=== PATIENT | male | born 1995 | race Asian ===

== ENCOUNTER 2017-03-20 02:42 | Emergency (ER) | payer OTHER ==
[2017-03-20 02:50] VITALS: TEMP 36.8; O2SAT 96
[2017-03-20 03:29] LABS: HEMATOCRIT 47.1 % (42-52); HEMOGLOBIN 16.4 g/dL (14.0-18.0); MEAN CELL VOLUME 90.4 fL (80-100); MEAN CORPUSCULAR HEMOGLOBIN 31.5 pg (25-34); MEAN CORPUSCULAR HGB CONC 34.8 g/dl (32-36); MEAN PLATELET VOLUME 9.3 fL (7.4-10.4); PLATELET COUNT 265 K/uL (130-400); RED CELL DISTRIBUTION WIDTH CV 12.5 % (11.5-14.5); RED CELL DISTRIBUTION WIDTH SD 40.9 fL (36.4-46.3); WHITE BLOOD COUNT 11.54 K/uL (4.8-10.8)
[2017-03-20] MEDS ORDERED: LORAZEPAM 2 MG/ML 1 ML VIAL ONE (03:40)
[2017-03-20 03:45] LABS: BLOOD UREA NITROGEN 15 mg/dl (7-18); CALCIUM 8.7 mg/dl (8.5-10.1); CARBON DIOXIDE 24 mmol/L (21-32); CREATININE 0.94 mg/dl (0.60-1.40); GLUCOSE 98 mg/dl (70-99); POTASSIUM 3.5 mmol/L (3.5-5.1); SODIUM 140 mmol/L (136-145)
[2017-03-20] MEDS ORDERED: XYLOCAINE 1%/SOD BICARB 20 ML VIAL INFIL ONE (07:15)
--- NOTE | 2017-03-20 08:58 | EMERGENCY ROOM VISIT NOTE ---
History Report prepared by Gildardo: Arlene Mendez Under the Supervision of: Dr. Nelli Bailon D.O. First contact with patient: 02:47 Chief Complaint: ALCOHOL OVERDOSE Stated Complaint: FALL W/ FOREHEAD LAC/ ETOH History of Present Illness The patient is a 21 year old male who presents to the Emergency Room with complaints of an episode of alcohol overdose occurring prior to arrival. Per nursing staff, the patient fell down steps outside of [facility] after drinking heavily tonight. His friend's report that he tripped and hit his forehead. He does not believe that there was a loss of consciousness. HPI and ROS limited secondary to intoxication. Source of History: patient, friend, nursing staff History Limited By: intoxication Onset: prior to arrival Position: other (global) Quality: other (overdose) Timing: other (episode) Review of Systems See HPI for pertinent positives & negatives. A total of 10 systems reviewed and were otherwise negative. Past Medical & Surgical Medical Problems: (1) No Known Active Medical Problems Family History No pertinent family history Social History Alcohol Use: occasionally Marital Status: single Housing Status: lives with roommate Occupation Status: [employer] student Current/Historical Medications Unable to Obtain Active Prescriptions or Reported Meds Physical Exam Vital Signs Date Time Temp Pulse Resp B/P (MAP) Pulse Ox O2 Delivery O2 Flow Rate FiO2 03/20/17 06:48 100 03/20/17 06:00 102 18 115/69 94 Room Air 03/20/17 05:00 100 18 118/60 94 Room Air 03/20/17 04:30 97 18 107/67 93 Room Air 03/20/17 04:04 115 18 132/73 96 Room Air 03/20/17 02:55 108 03/20/17 02:50 96 Room Air 03/20/17 02:50 36.8 110 18 124/75 96 Room Air Physical Exam General: lethargic HEENT: Head - normocephalic. Large laceration to the forehead measuring 3.2 cm. Pupils are equal, round, and reactive to light. Extraocular eye muscles are intact and sclera are anicteric. Ears - bilaterally patent canals with no evidence of hemotympanum. Nose - moist nasal mucosa without evidence of trauma or discharge. Mouth - moist buccal mucosa with no trauma to the teeth or signs of malocclusion. Neck: The cervical collar was temporarily removed while in-line stabilization was maintained. The neck is supple and there is no pain to palpation over the posterior cervical spine and no obvious step-offs or deformities. There is no JVD or tracheal deviation. Chest: There are no signs of deformities, contusions or abrasions to the chest wall. There is no obvious crepitus or paradoxical chest rise. Heart: Regular, rate, and rhythm. There is a normal S1 and S2 with no murmurs, clicks, or gallops appreciated. Lungs: Clear to auscultation bilaterally with no wheezes, rales, or rhonchi. Abdomen: Soft, completely nontender, nondistended, with good bowel sounds. There is no sign of trauma such as contusions, abrasions or penetrations. There are no palpable pulsatile masses or hepatosplenomegaly. There is no guarding, rigidity, or rebound noted. Pelvis: Stable to rock and compression. Extremities: No obvious trauma, deformities, contusions, or edema. There are easily palpable peripheral pulses. Neuro: Lethargic with slurred speech. Occasionally follows commands. Back: The entire thoracic, lumbar, and sacral spine were palpated. There are no obvious step-offs or deformities noted. There are no obvious signs of trauma such as contusions abrasions penetrations noted to the back. Medical Decision & Procedures ER Provider Diagnostic Interpretation: Radiology results as stated below per my review and the radiologist's interpretation: CT HEAD: Extracranial soft tissue injury. No ICH, mass effect or skull fracture. CT C SPINE: No acute fracture or malalignment. Radiologist: Vin Deras MD Study ready at 04:04 and initial results transmitted at 04:47. Laboratory Results 03/20/17 03:16 03/20/17 03:16 Test 03/20/17 03:16 03/20/17 03:56 Red Blood Count 5.21 M/uL (4.7-6.1) Mean Corpuscular Volume 90.4 fL (80-100) Mean Corpuscular Hemoglobin 31.5 pg (25-34) Mean Corpuscular Hemoglobin Concent 34.8 g/dl (32-36) RDW Standard Deviation 40.9 fL (36.4-46.3) RDW Coefficient of Variation 12.5 % (11.5-14.5) Mean Platelet Volume 9.3 fL (7.4-10.4) Anion Gap 9.0 mmol/L (3-11) Estimated GFR () 131.9 Estimated GFR (Non- 113.8 BUN/Creatinine Ratio 15.9 (10-20) Calcium Level 8.7 mg/dl (8.5-10.1) Ethyl Alcohol mg/dL 353.0 mg/dl (0-3) Laboratory results per my review. Medications Administered Medications (Trade) Dose Ordered Sig/Beckie Route Start Time Stop Time Status Last Admin Dose Admin Lorazepam (Ativan Inj) 2 mg STK-MED ONCE .ROUTE 03/20/17 03:40 03/20/17 03:41 DC 03/20/17 03:47 1 MG Procedure 0340: Ordered Ativan Inj 1mg IV ED Course 0301: Past medical records reviewed. The patient was evaluated in room B6. A complete history and physical exam was performed. Labs were drawn as above. Security had to coax the patient to stay in bed. Once the patient's friends arrived at the bedside and were able to speak Setswana to him, he was able to cooperate more easily. 0338: The patient is unwilling to lay flat at CT and ripped out his IV. 0340: A second IV lock was initiated and I Ordered Ativan Inj 1 mg IV. 0510: The patient is still unresponsive, but hemodynamically stable. 0700: The patient became somewhat agitated and required short-term physical restraint and redirection. He was insistent that he removed the bandage on his forehead but then he would immediately start to bleed. We were able to place a pressure dressing that he would leave in place and was able to go back to sleep. 0900: The patient was signed out to Dr. Bergman at change of shift. 0930:See Kaleb Lyle's dictation for the procedure of facial wound repair. Medical Decision The patient is a 21 year old male who presents to the Emergency Room with complaints of an episode of alcohol overdose occurring prior to arrival. Differential diagnoses include alcohol overdose, drug intoxication, hypoglycemia , head injury. LABS: White count 11.5 Stable H&H Normal glucose Normal renal function Alcohol 353 This is a 21-year-old male who presents to the emergency department after consuming too much alcohol and falling striking his forehead. The patient had a negative CT scan of the brain, facial bones and cervical spine. He does have a large wound to the forehead that requires some repair. This will be completed by Kaleb Butler PA-C. The case was signed out to Dr. Bergman at change of shift to reevaluate the patient as he is suffering from a head injury and is intoxicated. Medication Reconcilliation Current Medication List: was personally reviewed by me Blood Pressure Screening Patient's blood pressure: Normal blood pressure Blood pressure disposition: Did not require urgent referral Impression Primary Impression: Alcohol overdose Additional Impressions: Facial laceration Head injury due to trauma Scribe Attestation The scribe's documentation has been prepared under my direction and personally reviewed by me in its entirety. I confirm that the note above accurately reflects all work, treatment, procedures, and medical decision making performed by me. Departure Information Dispostion Still a Patient Prescriptions Unable to Obtain Active Prescriptions or Reported Meds Forms HOME CARE DOCUMENTATION FORM, IMPORTANT VISIT INFORMATION Patient Instructions My [facility] Additional Instructions Avoid such excessive alcohol use in the future Rest. Take plenty of clear liquids today Use tylenol for headache. Keep the wound clean with soap and water. Cover with antibiotic ointment Have sutures removed in 5-6 days Problem Qualifiers Primary Impression: Alcohol overdose Encounter type: initial encounter Injury intent: accidental or unintentional Qualified Codes: T51.91XA - Toxic effect of unspecified alcohol , accidental (unintentional), initial encounter Additional Impressions: Facial laceration Encounter type: initial encounter Qualified Codes: S01.81XA - Laceration without foreign body of other part of head, initial encounter Head injury due to trauma Encounter type: initial encounter Qualified Codes: S09.90XA - Unspecified injury of head, initial encounter
--- NOTE | 2017-03-20 09:07 | DIAGNOSTIC IMAGING REPORT ---
CT OF THE HEAD WITHOUT CONTRAST CLINICAL HISTORY: eval for trauma COMPARISON STUDY: No previous studies for comparison. TECHNIQUE: Helical axial images of the head were obtained without IV contrast. Automated exposure control was utilized for the study. A dose lowering technique was utilized adhering to the principles of ALARA. FINDINGS: No acute intracranial hemorrhage, midline shift or mass effect is present. Ventricular system is normal. Basilar cisterns are patent. There are no extra-axial collections. Vergara-white differentiation is maintained. There is no calvarial fracture. There is mild sinus mucosal thickening. IMPRESSION: 1. No acute intracranial finding. 2. No calvarial fracture. 3. Mild sinus mucosal thickening. Electronically signed by: Cain Downs M.D. 03/20/2017 9:06 AM Dictated Date/Time: 03/20/2017 9:04 AM
--- NOTE | 2017-03-20 09:09 | DIAGNOSTIC IMAGING REPORT ---
CT OF THE CERVICAL SPINE WITHOUT CONTRAST CLINICAL HISTORY: eval for trauma COMPARISON STUDY: No previous studies for comparison. TECHNIQUE: Helical axial images of the cervical spine were obtained without IV contrast. Sagittal and coronal reconstructions were viewed. A dose lowering technique was utilized adhering to the principles of ALARA. FINDINGS: There is slight reversal of the normal cervical lordosis. Craniocervical junction is intact. There is no cervical spine fracture. There is mild multilevel degenerative disc disease. IMPRESSION: No acute cervical spine fracture or subluxation. Electronically signed by: Cain Downs M.D. 03/20/2017 9:08 AM Dictated Date/Time: 03/20/2017 9:06 AM
[2017-03-20 13:56] VITALS: BP 105/68; PULSE 92; O2SAT 98
--- NOTE | 2017-03-21 06:43 | EMERGENCY ROOM VISIT NOTE ---
ED Visit Note Emergency Department Procedure Note Mr. Espinoza is a 21-year-old male who is in the emergency department for a fall after drinking alcohol. I was asked to evaluate his frontal laceration by Dr. Dos Santos, emergency medicine, please see her notes and orders for full information about his ED evaluation. Wound Repair: Description: 13.2 cm full-thickness laceration over the mid forehead and between the eyebrows. Complexity: Intermediate. Reason: 3 layer closure due to laceration of the glia Verbal consent was obtained after the risks and benefits were explained. The skin was prepped with betadine and a sterile field set. Wound edges of the wound was anesthetized with 4.4 ml buffered 1% lidocaine with epinephrine. The wound was explored for foreign bodies and none found. Copious irrigation was performed using sterile saline. With direct pressure the bleeding subsided. Debridement was not performed. The glia layer was closed with 2 6-0 Vicryl simple interrupted sutures. The subcutaneous layer was closed with 4 6-0 Vicryl simple interrupted sutures. And the external layer was closed with 13 6-0 Ethilon simple interrupted sutures. Hemostasis and excellent approximation was achieved. Antibacterial ointment and a sterile dressing applied. No complications and the patient tolerated the procedure well.
== END 2017-03-20 13:59 | disposition home or self-care (01) ==
LOC: EDBD 02:42 → C.EDB 02:44
DX: S01.81XA Laceration without foreign body of other part of head, initial encounter (principal); W01.198A Fall on same level from slipping, tripping and stumbling with subsequent striking against other object, initial encounter; F10.120 Alcohol abuse with intoxication, uncomplicated; T51.0X1A Toxic effect of ethanol, accidental (unintentional), initial encounter; Y90.8 Blood alcohol level of 240 mg/100 ml or more

== ENCOUNTER 2017-03-25 15:48 | Emergency (ER) | payer OTHER ==
[~2017-03-25] VITALS: Ht 177.8 cm; Wt 69.4 kg
[2017-03-25 15:51] VITALS: TEMP 36.8; Ht 177.8 cm; Wt 69.4 kg
[2017-03-25] MEDS ORDERED: CEFTRIAXONE SOD INJ 1 GM ADDVIAL IV STA (16:50)
[2017-03-25] MEDS ORDERED: VANCOMYCIN INJ 1,000 MG in SODIUM CHLORIDE 0.9% 250ML 250 ML IV STA (16:50)
[2017-03-25] MEDS ORDERED: ONDANSETRON INJ 2 MG/ML 2 ML VIAL IV STA (16:50)
[2017-03-25] MEDS ORDERED: MoRPHine SULFATE 10 MG/ML CARP/VIAL IV STA (16:50)
[2017-03-25] MEDS ORDERED: VANCOMYCIN CONSULT ACTIVE PRN (17:00)
[2017-03-25] MEDS ORDERED: SODIUM CHLORIDE 0.9% 1000ML 1,000 ML IV ONE (17:00)
[2017-03-25] MEDS ORDERED: ACET-1256 PO (17:12)
[2017-03-25 17:19] LABS: BASO % 0.2 %; BASO ABS # 0.03 K/uL (0-0.2); EOS % 0.1 %; EOS ABS # 0.02 K/uL (0-0.5); HEMATOCRIT 47.3 % (42-52); HEMOGLOBIN 16.4 g/dL (14.0-18.0); IG# 0.02 K/uL (0.00-0.02); LYMPH % 10.3 %; LYMPH ABS # 1.56 K/uL (1.2-3.4); MEAN CELL VOLUME 90.8 fL (80-100); MEAN CORPUSCULAR HEMOGLOBIN 31.5 pg (25-34); MEAN CORPUSCULAR HGB CONC 34.7 g/dl (32-36); MEAN PLATELET VOLUME 9.3 fL (7.4-10.4); MONO ABS # 1.21 K/uL (0.11-0.59); NEUT % 81.3 %; NEUT ABS # 12.26 K/uL (1.4-6.5); PLATELET COUNT 240 K/uL (130-400); RED CELL DISTRIBUTION WIDTH CV 12.5 % (11.5-14.5); RED CELL DISTRIBUTION WIDTH SD 41.4 fL (36.4-46.3)
[2017-03-25 17:40] LABS: ALBUMIN 4.1 gm/dl (3.4-5.0); CALCIUM 9.5 mg/dl (8.5-10.1); CREATININE 0.86 mg/dl (0.60-1.40); POTASSIUM 3.6 mmol/L (3.5-5.1)
[2017-03-25 17:43] LABS: TOTAL PROTEIN 8.7 gm/dl (6.4-8.2)
[2017-03-25] MEDS ORDERED: MoRPHine SULFATE 4 MG/ML 1 ML CARP\\VIAL IV ONE (18:45)
[2017-03-25] MEDS ORDERED: SEPTRA DS HOME PACK 1 EA VIAL PO ONE (20:30)
[2017-03-25] MEDS ORDERED: CEPHALEXIN 500MG HOME PACK 1 EA BTL PO ONE (20:30)
[2017-03-25] MEDS ORDERED: NORCO 5/325MG HOME PACK PO ONE (20:30)
[2017-03-25] MEDS ORDERED: SULF800T23 PO (20:33)
[2017-03-25] MEDS ORDERED: CEPH500C PO (20:33)
[2017-03-25 20:53] VITALS: BP 138/92; PULSE 82; O2SAT 98
--- NOTE | 2017-03-25 22:48 | EMERGENCY ROOM VISIT NOTE ---
History First contact with patient: 16:40 Chief Complaint: WOUND INFECTION Stated Complaint: WOUND INFECTION, FEVER History of Present Illness The patient is a 21 year old male who presents to the Emergency Room with complaints of infection of the forehead that is been worsening over the past one to 2 days. The patient was recently seen at this facility for alcohol intoxication. He had a mechanical fall and subsequent mid forehead laceration. His CAT scans were negative at that time, and his wound was washed out here in the department, and closed in a multilevel fashion. The patient has gone home, and has noticed swelling and pain. He does not report fever. No new injury. He is not taking anything [id number] for his discomfort. He rates his pain an 8/10. Review of Systems More than 10 systems were reviewed and otherwise negative with the exception of history of present illness. Past Medical/Surgical History Medical Problems: (1) No Known Active Medical Problems Family History No pertinent family history Social History Smoking Status: Light Tobacco Smoker Alcohol Use: occasionally Marital Status: single Housing Status: lives with roommate Occupation Status: [employer] student Current/Historical Medications Scheduled Acetaminophen (Tylenol), 1,000 MG PO UD Cephalexin Monohydrate (Keflex), 500 MG PO TID Sulfa/Trimethoprim (Bactrim Ds 800MG/160MG), 1 TAB PO BID Physical Exam Vital Signs Date Time Temp Pulse Resp B/P (MAP) Pulse Ox O2 Delivery O2 Flow Rate FiO2 03/25/17 20:53 82 20 138/92 98 03/25/17 18:54 96 18 158/100 98 Room Air 03/25/17 17:15 92 16 141/91 99 Room Air 03/25/17 15:51 36.8 108 17 148/90 97 Room Air Physical Exam VITALS: Vitals are noted on the nurse's note and reviewed by myself. Vital signs with tachycardia. GENERAL: Well-developed, well-nourished, male, who appears uncomfortable HEAD: There is a irregular vertical laceration to the mid forehead that appears with abscess and infection. There is purulent drainage along the inferior aspect of the laceration. This was sent for culture. EARS: External ear normal. External auditory canals clear, tympanic membranes pearly green without erythema or effusion bilaterally. EYES: Pupils equal round and reactive to light and accommodation. Conjunctivae without injection, sclerae without icterus. Extraocular movements intact. NOSE: Patent, turbinates without inflammation or discharge. MOUTH: Mucous membranes moist. Tonsils are not enlarged. Pharynx without erythema, blood, or exudate. Uvula midline. Airway patent. NECK: Supple without nuchal rigidity. No lymphadenopathy. No thyromegaly. Cervical spine is nontender. HEART: Regular rate and rhythm without murmurs gallops or rubs. Medical Decision & Procedures Laboratory Results 03/25/17 16:59 Red Blood Count 5.21, Mean Corpuscular Volume 90.8, Mean Corpuscular Hemoglobin 31.5, Mean Corpuscular Hemoglobin Concent 34.7, Mean Platelet Volume 9.3, Neutrophils (%) (Auto) 81.3, Lymphocytes (%) (Auto) 10.3, Monocytes (%) (Auto) 8.0, Eosinophils (%) (Auto) 0.1, Basophils (%) (Auto) 0.2, Neutrophils # (Auto) 12.26, Lymphocytes # (Auto) 1.56, Monocytes # (Auto) 1.21, Eosinophils # (Auto) 0.02, Basophils # (Auto) 0.03 03/25/17 16:59 Test 03/25/17 16:59 03/25/17 17:07 White Blood Count 15.10 K/uL (4.8-10.8) Red Blood Count 5.21 M/uL (4.7-6.1) Hemoglobin 16.4 g/dL (14.0-18.0) Hematocrit 47.3 % (42-52) Mean Corpuscular Volume 90.8 fL (80-100) Mean Corpuscular Hemoglobin 31.5 pg (25-34) Mean Corpuscular Hemoglobin Concent 34.7 g/dl (32-36) Platelet Count 240 K/uL (130-400) Mean Platelet Volume 9.3 fL (7.4-10.4) Neutrophils (%) (Auto) 81.3 % Lymphocytes (%) (Auto) 10.3 % Monocytes (%) (Auto) 8.0 % Eosinophils (%) (Auto) 0.1 % Basophils (%) (Auto) 0.2 % Neutrophils # (Auto) 12.26 K/uL (1.4-6.5) Lymphocytes # (Auto) 1.56 K/uL (1.2-3.4) Monocytes # (Auto) 1.21 K/uL (0.11-0.59) Eosinophils # (Auto) 0.02 K/uL (0-0.5) Basophils # (Auto) 0.03 K/uL (0-0.2) RDW Standard Deviation 41.4 fL (36.4-46.3) RDW Coefficient of Variation 12.5 % (11.5-14.5) Immature Granulocyte % (Auto) 0.1 % Immature Granulocyte # (Auto) 0.02 K/uL (0.00-0.02) Erythrocyte Sedimentation Rate 37 mm/hr (0-14) Anion Gap 6.0 mmol/L (3-11) Est Creatinine Clear Calc Drug Dose 131.1 ml/min Estimated GFR () 141.7 Estimated GFR (Non- 122.2 BUN/Creatinine Ratio 6.4 (10-20) Calcium Level 9.5 mg/dl (8.5-10.1) Total Bilirubin 0.5 mg/dl (0.2-1) Aspartate Amino Transf (AST/SGOT) 16 U/L (15-37) Alanine Aminotransferase (ALT/SGPT) 15 U/L (12-78) Alkaline Phosphatase 107 U/L (45-117) C-Reactive Protein 11.00 mg/dl (0-0.29) Total Protein 8.7 gm/dl (6.4-8.2) Albumin 4.1 gm/dl (3.4-5.0) Globulin 4.6 gm/dl (2.5-4.0) Albumin/Globulin Ratio 0.9 (0.9-2) Bedside Lactic Acid Venous 1.02 mmol/L (0.90-1.70) Medications Administered Medications (Trade) Dose Ordered Sig/Beckie Route Start Time Stop Time Status Last Admin Dose Admin Sodium Chloride 1,000 ml @ 999 mls/hr Q1H1M ONCE IV 03/25/17 17:00 03/25/17 18:00 DC 03/25/17 17:19 999 MLS/HR Ceftriaxone Sodium (Rocephin Inj) 1 gm NOW STAT IV 03/25/17 16:50 03/25/17 16:55 DC 03/25/17 17:47 1 GM Morphine Sulfate (MoRPHine SULFATE INJ) 6 mg NOW STAT IV 2/8/18 16:50 03/25/17 16:55 DC 03/25/17 17:19 6 MG Ondansetron HCl (Zofran Inj) 4 mg NOW STAT IV 03/25/17 16:50 03/25/17 16:56 DC 03/25/17 17:18 4 MG Vancomycin HCl 1000 mg/Sodium Chloride 270 ml @ 125 mls/hr NOW STAT IV 03/25/17 16:50 03/25/17 18:59 DC 03/25/17 17:59 125 MLS/HR Morphine Sulfate (MoRPHine SULFATE INJ) 4 mg NOW ONCE IV 03/25/17 18:45 03/25/17 18:46 DC 03/25/17 18:54 4 MG Cephalexin Monohydrate (Keflex 500MG Home Pack) 1 homepack NOW ONCE PO 03/25/17 20:30 03/25/17 20:31 DC 03/25/17 20:47 1 HOMEPACK Trimethoprim/ Sulfamethoxazole (Sulfameth/ Trimeth Ds 800/ 160MG Home Pack) 1 homepack UD ONCE PO 03/25/17 20:30 03/25/17 20:31 DC 03/25/17 20:46 1 HOMEPACK Acetaminophen/ Hydrocodone Bitart ([place] 5/325mg Home Pack) 1 homepack UD ONCE PO 03/25/17 20:30 03/25/17 20:31 DC 03/25/17 20:46 1 HOMEPACK ED Course Physical exam and history were performed. Nursing notes, EMR, and Medication List were personally reviewed. Patient appears to have an infected laceration of his forehead. There is purulent material coming from the inferior aspect of the laceration. I was able to express a large amount of purulent material from the wound and send this for culture. The overlying sutures were quite contaminated both with crusty material, and this was cleansed and debrided. The sutures themselves appear to be intact, and cosmetically appear appropriately positioned. IV access was established and basic labs were obtained. I clinically have a strong suspicion for MRSA, and after discussing with my attending elected to begin the patient on a dose of vancomycin and Rocephin IV. The patient's blood work is as above and was reviewed. He does have an elevated white blood count of 15,000. His lactic acid is negative. Blood cultures are pending. His sedimentation rate and CRP are elevated as suspected. The patient was monitored for several hours here in the department as his medications and refused. He did require pain medication after manipulation of the abscess, which was cleansed and manipulated multiple times throughout his ER stay. Overall the patient appears stable for discharge home. He does have an obvious infection of his laceration, however this is now draining and should improve with antibiotics. He will be given a course of Bactrim and Keflex, and was started with a home pack of these medications. He will need very close follow-up for his symptoms, and I strongly recommended return to the ER at 36- 48 hours for recheck. He was asked to return sooner if his symptoms worsen. The patient voiced understanding and rated his discomfort a 2/10,000 departure. The chart was completed utilizing [employer] Speech Voice Recognition Software. Grammatical errors, random word insertions, pronoun errors, and incomplete sentences are an occasional consequence of this system due to software limitations, ambient noise, and hardware issues. Any formal questions or concerns about the content, text, or information contained within the body of this dictation should be directly addressed to the provider for clarification. . Medical Decision Differential diagnosis: Etiologies such as cellulitis, abscess, MRSA infection, DVT, necrotizing fasciitis, dermatitis, drug eruption, as well as others were entertained.. Impression Primary Impression: Infected laceration of skin Departure Information Dispostion Home / Self-Care Condition GOOD Prescriptions Cephalexin Monohydrate (Keflex) 500 Mg Cap 500 MG PO TID for 9 Days, #27 CAP Prov: Adan Gerard PA-C 03/25/17 Sulfa/Trimethoprim (Bactrim Ds 800MG/160MG) Tab 1 TAB PO BID for 9 Days, #18 TAB Prov: Adan Gerard PA-C 03/25/17 Forms HOME CARE DOCUMENTATION FORM, IMPORTANT VISIT INFORMATION Patient Instructions My [facility] Additional Instructions You were seen and evaluated today on an emergency basis only. This is not a substitute for, or an effort to provide, complete comprehensive medical care. It is not possible to recognize and treat all injuries or illnesses in a single emergency department visit. For this reason it is recommended that you followup back in the emergency department in 36-48 hours for recheck of your condition. Trimethoprim-Sulfamethoxazole(Bactrim DS): Take one pill twice daily for 10 days for your skin infection. All antibiotics can cause diarrhea. If this occurs and you feel worse or it does not resolve in 1-2 days follow up with your doctor or return to the Emergency Department as this could be signs of serious underlying problems. Any medication can cause an allergic reaction, stop the pills immediately and return to the ER for rash, hives, breathing difficulties, or swelling. Cephalexin(Keflex) 500mg: Take one pill 3 times daily for 10 days for your skin infection. All antibiotics can cause diarrhea. If this occurs and you feel worse or it does not resolve in 1-2 days follow up with your doctor or return to the Emergency Department as this could be signs of serious underlying problems. Any medication can cause an allergic reaction, stop the pills immediately and return to the ER for rash, hives, breathing difficulties, or swelling. [place] (hydrocodone/acetaminophen) 5/325 mg every 6 hours as needed for worsening breakthrough pain. Do not drink or drive on [place]. This medication will likely make you tired. Do not take [place] and Tylenol at the same time as both contain acetaminophen. [place] may cause constipation. You may wish to take an [id number] stool softener like Colace if this occurs. For baseline pain relief you may alternate ibuprofen and acetaminophen every 4 hours for pain control. Take 600 mg ibuprofen (Advil) and then 4 hours later take 1000 mg acetaminophen (Tylenol). Do not take more than 3000 mg acetaminophen in a single day. Apply a bacitracin antibiotic ointment and Band-Aid to the wound 2-3 times daily as needed You are welcome to return to the emergency department anytime with new, worsening, or concerning symptoms.
--- NOTE | 2017-03-26 11:33 | Pharmacy Progress Note ---
ED Pharmacist Culture FollowUp Date of Service: Mar 26, 2017. Patient's preliminary wound culture showing gram positive cocci. Patient was discharged on cephalexin and bactrim and instructed to follow up within 36-48 hours. Will await finalized cultures to determine if antibiotic change is necessary, as current regimen is appropriate empiric gram positive coverage.
== END 2017-03-25 20:56 | disposition home or self-care (01) ==
LOC: C.EDB 15:51 → C.EDC 20:56
DX: T81.4XXA Infection following a procedure, initial encounter (principal); R50.9 Fever, unspecified; Y84.8 Other medical procedures as the cause of abnormal reaction of the patient, or of later complication, without mention of misadventure at the time of the procedure; F17.200 Nicotine dependence, unspecified, uncomplicated

== ENCOUNTER 2017-03-27 13:13 | Emergency (ER) | payer OTHER ==
[~2017-03-27] VITALS: Ht 170.2 cm; Wt 66.5 kg
[~2017-03-27 13:13] MED LIST: ACET-1256 PO; CEPH500C PO; SULF800T23 PO
[2017-03-27 13:16] VITALS: BP 125/82; PULSE 81; TEMP 36.3; O2SAT 97; Ht 170.2 cm; Wt 66.5 kg
--- NOTE | 2017-03-27 13:48 | EMERGENCY ROOM VISIT NOTE ---
History First contact with patient: 13:28 Chief Complaint: LACERATION/CUT (NON-SUTURE) Stated Complaint: RETURN VISIT/FACIAL LACERATION AND INFEC Nursing Triage Summary: pt recieved stitches 1 week ago and is here today for a recheck of wound , pt has been on abx for inf of wound History of Present Illness The patient is a 21 year old male who presents to the Emergency Room for a wound recheck. The patient reports that he was here 2 days ago due to infection of a sutured wound. He states that pus was expressed from the wound and he was placed on 2 antibiotics. He rates his discomfort a 3/10. He states that the wound is looking much better and is no longer draining pus. He denies any fevers. Review of Systems A complete 10 point review of systems was reviewed with the patient with pertinent positives and negatives as per history of present illness. All else were negative. Past Medical/Surgical History Medical Problems: (1) No Known Active Medical Problems Family History No pertinent family history Social History Smoking Status: Never Smoker Alcohol Use: occasionally Marital Status: single Housing Status: lives with roommate Occupation Status: [employer] student Current/Historical Medications Scheduled Acetaminophen (Tylenol), 1,000 MG PO UD Cephalexin Monohydrate (Keflex), 500 MG PO TID Sulfa/Trimethoprim (Bactrim Ds 800MG/160MG), 1 TAB PO BID Physical Exam Vital Signs Date Time Temp Pulse Resp B/P (MAP) Pulse Ox O2 Delivery O2 Flow Rate FiO2 03/27/17 13:16 36.3 81 20 125/82 97 Room Air Physical Exam VITALS: Vitals are noted on the nurse's note and reviewed by myself. Vital signs stable. GENERAL: This is a 21-year-old male, in no acute distress, nondiaphoretic, well- developed well-nourished. SKIN: There is a sutured wound to the center of the forehead. There is mild swelling surrounding the wound and minimal erythema. There is no drainage. NEURO: Patient was alert and oriented to person place and time. Medical Decision & Procedures Medical Decision The patient was evaluated as above. Previous records were reviewed. According to the patient and his previous ED records, he seems to be doing much better. I did remove every other stitch and instructed the patient to continue the antibiotics and return in 2 days for another recheck and removal of the remaining sutures at that time. Patient was advised to return sooner if he is concerned the infection is worsening or if he develops fevers. He verbalized understanding of my assessment and treatment plan and was discharged home in good condition. Medication Reconcilliation Current Medication List: was personally reviewed by me Blood Pressure Screening Patient's blood pressure: Normal blood pressure Impression Primary Impression: Infected laceration of skin Departure Information Dispostion Home / Self-Care Condition GOOD Referrals [facility] (PCP) Patient Instructions My [facility] Additional Instructions Continue the antibiotics as prescribed. Return to the emergency department in 2 days for a recheck.
== END 2017-03-27 13:45 | disposition home or self-care (01) ==
LOC: C.EDB 13:13 → C.EDD 13:45
DX: S01.81XA Laceration without foreign body of other part of head, initial encounter (principal); X58.XXXA Exposure to other specified factors, initial encounter; L08.9 Local infection of the skin and subcutaneous tissue, unspecified; Z79.2 Long term (current) use of antibiotics

== ENCOUNTER 2017-03-29 10:32 | Emergency (ER) | payer OTHER ==
[~2017-03-29] VITALS: Ht 170.2 cm; Wt 67.5 kg
[2017-03-29 10:48] VITALS: TEMP 36.8; Ht 170.2 cm; Wt 67.5 kg
--- NOTE | 2017-03-29 11:46 | EMERGENCY ROOM VISIT NOTE ---
ED Visit Note First contact with patient: 11:14 CHIEF COMPLAINT: Suture removal HPI: This patient returns to the ED today for removal of sutures that were placed 8 days ago. The patient has been seen back here in the emergency department for wound rechecks regarding an abscess which developed. The patient has been on Keflex and Bactrim. His culture report grew gram-positive cocci and group a strep. Since starting the antibiotics, the patient has had no further drainage or significant pain. He states the redness has improved significantly as well. The patient feels like the laceration is healing well. He did have half of the sutures removed at a previous visit. REVIEW OF SYSTEMS: Insert 6 ROS PMH: The patient is healthy; there is no significant medical or surgical history. SOCIAL HISTORY: The patient lives locally with his roommate. He is a [email or web address] student. PHYSICAL EXAM: Vital Signs: Reviewed Nurse's notes. There is a sutured wound on the forehead with no signs of abscess or infection. There is no erythema, swelling, or tenderness. The wound edges have healed together and are not . EMERGENCY DEPARTMENT COURSE: The remaining sutures were removed without any difficulty and there was no separation of the wound edges. The wound was covered with a small amount of antibiotic ointment. I did encourage the patient to return or have follow-up completed in 3-4 days with [facility] for 1 more wound recheck, as there is some mild erythema remaining. The patient is encouraged to continue all antibiotics as prescribed. Discharge instructions reviewed, and the patient was discharged home in good condition. I attest that I have personally reviewed the patient's current medication list. Patient was found to have normal blood pressure on screening and does not require follow-up. DIFFERENTIAL DIAGNOSIS: Abscess, dehiscence, cellulitis, infection, and others DIAGNOSIS: Healing laceration and suture removal Current/Historical Medications Scheduled Acetaminophen (Tylenol), 1,000 MG PO UD Cephalexin Monohydrate (Keflex), 500 MG PO TID Sulfa/Trimethoprim (Bactrim Ds 800MG/160MG), 1 TAB PO BID Allergies Coded Allergies: No Known Allergies (Unverified , 03/25/17) Vital Signs Date Time Temp Pulse Resp B/P (MAP) Pulse Ox O2 Delivery O2 Flow Rate FiO2 03/29/17 10:48 36.8 79 20 119/82 97 Room Air Departure Information Impression Primary Impression: Encounter for removal of sutures Additional Impression: Laceration of forehead Dispostion Home / Self-Care Condition GOOD Referrals No Doctor, Assigned (PCP) [facility] Patient Instructions ED Wound Check Sutr Remove No Infgudelia, Alexa [facility] Additional Instructions You were seen in the emergency room today for suture removal. Sutures were removed without difficulty. Please continue all antibiotics as prescribed. Please keep the area clean and dry. You may use soap and water. Do not scrub over the wound aggressively. Use vitamin E oil over the wound to help with scarring. As discussed, I did recommend follow-up with [facility] or here in the emergency department by the end of this week or 1 more wound recheck. Please continue to monitor for abscess, increasing redness or pain, purulent drainage, or other concerning symptoms. If these occur, return immediately to the emergency department. Problem Qualifiers Additional Impression: Laceration of forehead Encounter type: subsequent encounter Qualified Codes: S01.81XD - Laceration without foreign body of other part of head, subsequent encounter
[2017-03-29 11:51] VITALS: BP 121/79; PULSE 81; O2SAT 98
== END 2017-03-29 11:50 | disposition home or self-care (01) ==
LOC: C.EDB 10:34 → C.EDD 11:50
DX: S01.81XD Laceration without foreign body of other part of head, subsequent encounter (principal); X58.XXXD Exposure to other specified factors, subsequent encounter